=== PATIENT | male | born 1955 | race Caucasian/White ===

== ENCOUNTER 2022-06-06 08:29 | Outpatient (CLI) | payer MEDICARE, OTHER ==
[2022-06-06] MEDS ORDERED: Iopamidol 300 61% 100 ML VIAL FS ONE (08:46)
== END 2022-06-06 08:30 | disposition home or self-care (01) ==
LOC: CSHCT 08:29
PROVIDERS: ATTEND Physician Assistant
DX: R59.0 Localized enlarged lymph nodes (principal)
CPT/HCPCS: 70491; 71046; 82565

== ENCOUNTER 2024-08-01 13:46 | Emergency (ER) | payer MEDICARE, OTHER | END 2024-08-01 15:40 | disposition home or self-care (01) | LOC: CSHERS 13:46 | DX: T82.838A Hemorrhage due to vascular prosthetic devices, implants and grafts, initial encounter (principal) | CPT/HCPCS: 99283 ==